=== PATIENT | female | born 1990 | race Caucasian/White ===

== ENCOUNTER 2019-03-25 21:55 | Emergency (ER) | payer SELFPAY ==
[~2019-03-25] VITALS: Ht 160 cm; Wt 105.7 kg
[2019-03-25 22:19] VITALS: Ht 160 cm; Wt 105.7 kg
[2019-03-26 00:35] VITALS: BP 121/74
== END 2019-03-26 00:35 | disposition home or self-care (01) ==
LOC: ED 21:55
DX: M25.562 Pain in left knee (principal); M79.89 Other specified soft tissue disorders

== ENCOUNTER 2019-03-30 16:12 | Emergency (ER) | payer SELFPAY ==
[~2019-03-30] VITALS: Ht 160 cm; Wt 104.8 kg
[2019-03-30 16:24] VITALS: Ht 160 cm; Wt 104.8 kg
[2019-03-30 17:40] VITALS: BP 115/74
== END 2019-03-30 17:40 | disposition home or self-care (01) ==
LOC: ED 16:12
DX: M25.562 Pain in left knee (principal); R22.42 Localized swelling, mass and lump, left lower limb